=== PATIENT | male | born 1975 | race African-American/Black ===

== ENCOUNTER 2017-03-21 04:57 | Day surgery (SDC) | payer OTHER ==
[~2017-03-21] VITALS: Ht 172.7 cm; Wt 116.6 kg
--- NOTE | ~2017-03-21 | OP ---
PATIENT NAME: PARAMJIT FRANKLIN MEDICAL RECORD: [id number] :71 LOCATION:[facility] ADMISSION DATE: SURGEON: EDUARDO RANDALL MD DATE OF OPERATION: 03/21/2017 PREOPERATIVE DIAGNOSIS: Symptomatic gallstones. POSTOPERATIVE DIAGNOSES: Symptomatic gallstones with hepatomegaly. PROCEDURES: Laparoscopic cholecystectomy, intraoperative cholangiography without immediate surgeon interpretation, and an 18-gauge core needle liver biopsy. SURGEON: Eduardo Randall MD TIMBER MANAGEMENT PROFESSOR: None. BLOOD LOSS: Minimal. ANESTHESIA: General. COMPLICATIONS: None. The risks, possible complications, and alternatives to the procedures were explained to the patient. He elects to proceed. OPERATIVE COURSE: The patient was conveyed to the operating room electively on 03/21/2017. General anesthesia was induced by the anesthesia staff. The abdomen was sterilely prepped and draped. A small skin julia was accomplished in the left upper quadrant. A Veress needle was inserted through the skin julia into the peritoneal cavity. CO2 insufflation was begun. Once a sufficient pneumoperitoneum had been achieved, a 5-mm trocar was inserted through an incision in the right upper quadrant. Under direct internal vision utilizing a television camera, a 12-mm trocar was inserted through an incision at the umbilicus. Another 5-mm trocar was inserted through an incision in the epigastrium. Another 5-mm trocar was inserted far laterally in the right upper quadrant. During insertion of the Veress needle and all trocars, there appeared to have been no injury to the bowels, any intraperitoneal or retroperitoneal structures. The indication for the liver biopsy was hepatomegaly. Under laparoscopic guidance, I percutaneously accessed the right upper quadrant utilizing an 18-gauge core needle liver biopsy device. Cores were obtained over the convexity of the liver. The biopsy sites were made hemostatic with the electrocautery. I then advanced a cholangiogram trocar. I punctured the fundus of the gallbladder. I aspirated bile. I then injected dye. Under real time fluoroscopy, static fluoroscopic images were obtained. These are cholangiographic images that are sent to the radiologist for interpretation. I then aspirated bile and removed the cholangiogram trocar. The gallbladder was grasped and retracted cephalad. The infundibulum was grasped and retracted laterally. The critical view was identified. Blunt dissection was begun on the triangle of Calot. One cystic artery and one cystic duct were identified. These were clipped multiplely and divided between clips. OPERATIVE REPORT [id number] PARAMJIT FRANKLIN The gallbladder was then excised from its bed in the liver. It was placed within a bag retrieval device and was withdrawn through the umbilical fascial defect. The 12-mm trocar was replaced and the abdomen reinsufflated. I irrigated and aspirated in the right upper quadrant. There was no bleeding even at low pressure of 8. Utilizing the Laci-Kate suture closure device and a 0 Vicryl suture, the umbilical fascia was closed. All the trocars were removed and the abdomen desufflated. The skin at the umbilicus was closed with interrupted 4-0 Vicryl Rapide sutures. The other skin incisions were closed with interrupted intracuticular 3-0 Vicryls. Benzoin and Steri-Strips were applied. The patient was then extubated and conveyed to the post-anesthesia care unit, where he was in stable condition. He will be dismissed with an analgesia script. TRANSINT:[id number] Voice Confirmation ID: [id number] DOCUMENT ID: [id number] EDUARDO RANDALL MD at 1131 CC: ALESHA PERKINS MD, SITA GAMINO MD and CELESTE BUNCH [id number] DICTATION DATE: 03/21/17 0939 [facility]AR STITCHER: 03/21/17 1130 [facility] 03/21/17 [facility] [address] [place] [address]
--- NOTE | ~2017-03-21 | HP ---
PATIENT: PARAMJIT FRANKLIN MEDICAL RECORD: [id number] ACCOUNT: [id number] LOCATION:[facility] : 71 ADMISSION DATE: 03/21/17 HISTORY AND PHYSICAL EXAMINATION PREOPERATIVE DIAGNOSIS: Gallstones. HISTORY OF PRESENT ILLNESS: The patient has symptomatic gallstones. He underwent an abdominal ultrasound to evaluate right upper quadrant pain and nausea as well as vomiting. The ultrasound revealed gallstones with normal-sized common duct and no signs of acute cholecystitis. He is here today for cholecystectomy. The risks, possible complications, and alternatives to procedure were explained to the patient. He elects to proceed. The discussion specifically included, but was not limited to, bleeding requiring emergency reoperation, infection, intestinal injury as well as common bile duct injury. HOME MEDICATIONS: Absorbase ointment, benztropine mesylate, haloperidol, hydrochlorothiazide, omeprazole, ProAir inhaler. PAST MEDICAL AND SURGICAL HISTORY: Hypertension, gastroesophageal reflux, asthma. ALLERGIES: IODINE. REVIEW OF SYSTEMS: Negative for thyroid disease. Positive for borderline diabetes. No rheumatic fever. No fainting or seizures. No heart disease. SOCIAL HISTORY: Ex-smoker. PHYSICAL EXAMINATION: GENERAL: The patient does not appear acutely ill. He does not appear chronically ill. VITAL SIGNS: Reviewed. EARS: External ears appear normal. EYES: Extraocular movements are intact. NECK: Trachea is midline. CHEST: No intercostal retractions. PULMONARY: Nonlabored. No stridor. ABDOMEN: Nontender. IMPRESSION: Symptomatic gallstones. PLAN: Laparoscopic cholecystectomy, intraoperative cholangiography, and possible liver biopsy. TRANSINT:[id number] Voice Confirmation ID: [id number] DOCUMENT ID: [id number] HISTORY AND PHYSICAL [id number] PARAMJIT FRANKLIN ROBERT MD at 1131 CC: ALESHA PERKINS MD, SITA GAMINO MD and CELESTE BUNCH [id number] DICTATION DATE: 03/21/17934 CONTACT OFFICER: 03/21/17 1113 [facility] 03/21/17 [facility] [address] [place] [address]
[2017-03-21] MEDS ORDERED: BENZTROPINE MESY1 MG PO (06:10)
[2017-03-21] MEDS ORDERED: HALDOL5 MG (06:11)
[2017-03-21] MEDS ORDERED: HALDOL5 MG PO (06:11)
[2017-03-21] MEDS ORDERED: HYDROCHLOROTH12.5 M1 PO (06:12)
[2017-03-21] MEDS ORDERED: OMEPRAZOLE20 M1 PO (06:13)
[2017-03-21] MEDS ORDERED: PROAIR HFA8.5 GM INH (06:14)
[2017-03-21 06:27] LABS: HEMATOCRIT 36.3 % (42.0-54.0); MCH 29.2 pg (26.0-34.0); MCHC 33.1 g/dL (31.0-37.0); MCV 88.3 fL (80.0-100.0); MEAN PLATELET VOLUME 10.2 fL (7.4-10.4); RBC 4.11 10x6/uL (4.20-6.10); RDW 13.5 % (11.5-14.5); WBC 6.8 10x3/uL (4.8-10.8)
[2017-03-21 06:38] VITALS: BP 114/55; Ht 172.7 cm; Wt 116.6 kg
[2017-03-21 06:41] LABS: CALC OSMOLALITY 280 mosm/kg (275-300); CALCIUM 8.8 mg/dL (8.5-10.1); CARBON DIOXIDE 30.4 mmol/L (21.0-32.0); CHLORIDE - SERUM 102 mmol/L (98-107); GLUCOSE 101 mg/dL (74-106); SODIUM 141 mmol/L (136-145); UREA NITROGEN 12 mg/dL (7-18); eGFR NON AFRICAN AMERICAN 86 mL/min (90-120)
== END 2017-03-21 11:59 | disposition home or self-care (01) ==
LOC: D.OPS 04:57 → D.SDCHOLD 05:03 → D.OPS 08:00
PROVIDERS: Anesthesiology
DX: K80.80 Other cholelithiasis without obstruction (principal); R16.0 Hepatomegaly, not elsewhere classified; F17.200 Nicotine dependence, unspecified, uncomplicated; J45.909 Unspecified asthma, uncomplicated; I10 Essential (primary) hypertension; K21.9 Gastro-esophageal reflux disease without esophagitis; Z01.812 Encounter for preprocedural laboratory examination